=== PATIENT | male | born 1980 | race Caucasian/White ===

== ENCOUNTER 2019-03-02 09:25 | Emergency (ER) | payer BC ==
[2019-03-02] MEDS ORDERED: TETANUS & DIPHTHERIA TOX,ADULT 0.5 ML VIAL ONE (10:10)
[2019-03-02] MEDS ORDERED: LIDOCAINE 2% MPF 5 ML VIAL ONE (11:06)
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
--- NOTE | 2019-03-02 11:42 | ER ---
Nurse's Notes [facility] Name: Favian Broussard Age: 38 yrs Sex: Male : 1980 Arrival Date: 03/02/2019 Time: 09:28 Bed 26 Private MD: Diagnosis: Partial avulsion left 2nd finger tip Presentation: 03/02 09:55 Presenting complaint: Patient states: Partially avulsed wound on the 2nd digit of L ca1 hand. Not bleeding at this time. Transition of care: patient was not received from another setting of care. Complicating Factors: There are no complicating factors for this patient. Onset of symptoms was March 02, 2019. Risk Assessment: Do you want to hurt yourself or someone else? Patient reports no desire to harm self or others. Initial Sepsis Screen: Does the patient meet any 2 criteria? No. Patient's initial sepsis screen is negative. Does the patient have a suspected source of infection? No. Patient's initial sepsis screen is negative. Care prior to arrival: None. 09:55 Method Of Arrival: Ambulatory ca1 09:55 Acuity: MIKEL 4 ca1 Triage Assessment: 09:57 General: Appears in no apparent distress. comfortable, Behavior is calm, cooperative, ca1 appropriate for age. Pain: Complains of pain in palmar aspect of distal phalanx of left index finger Pain currently is 2 out of 10 on a pain scale. Neuro: Level of Consciousness is awake, alert, obeys commands, Oriented to person, place, time, situation, Appropriate for age. Derm: Skin is healthy with good turgor, Skin is pink, warm \T\ dry. Musculoskeletal: Circulation, motion, and sensation intact. Capillary refill < 3 seconds, Range of motion: intact in all extremities. Injury Description: Laceration sustained to palmar aspect of distal phalanx of left index finger is contaminated, jagged, 2.6 to 7.5 cm long, not bleeding, was sustained 30-60 minutes ago. is bleeding no active bleeding noted. Historical: - Allergies: :57 No Known Allergies; ca1 - Home Meds: :57 None [Active]; ca1 - PMHx: 09:57 None; ca1 - Immunization history:: Adult Immunizations up to date, Last tetanus immunization: unknown, Flu vaccine is not up to date. - Social history:: Smoking status: Patient/guardian denies using tobacco. - Ebola Screening: : Patient negative for fever greater than or equal to 101.5 degrees Fahrenheit, and additional compatible Ebola Virus Disease symptoms No symptoms or risks identified at this time. - Family history:: not pertinent. - Hospitalizations: : No recent hospitalization is reported. Screenin:02 Abuse screen: Denies threats or abuse. Denies injuries from another. Nutritional ca1 screening: No deficits noted. Tuberculosis screening: No symptoms or risk factors identified. Fall Risk None identified. Assessment: 10:02 Reassessment: See triage notes. Injury Description: Avulsion sustained to palmar aspect ca1 of distal phalanx of left index finger is partial was sustained 30-60 minutes ago. 10:03 Reassessment: Wound soaked in saline with betadine. ca1 10:32 Reassessment: Wound cleaned and irrigated with saline. ca1 11:20 Reassessment: Patient appears in no apparent distress at this time. Patient is alert, ca1 oriented x 3, equal unlabored respirations, skin warm/dry/pink. Dr. Franco at bedside for lac repair. 11:53 Reassessment: Patient appears in no apparent distress at this time. Patient is alert, ca1 oriented x 3, equal unlabored respirations, skin warm/dry/pink. Vital Signs: 09:57 BP 155 / 74; Pulse 94; Resp 16 S; Temp 98.9(O); Pulse Ox 100% on R/A; Weight 81.65 kg ca1 (R); Height 5 ft. 10 in. (177.80 cm) (R); Pain 2/10; 11:20 BP 139 / 75; Pulse 89; Resp 16 S; Pulse Ox 100% on R/A; ca1 11:53 BP 129 / 81; Pulse 76; Resp 16 S; Pulse Ox 99% on R/A; ca1 09:57 Body Mass Index 25.83 (81.65 kg, 177.80 cm) ca1 ED Course: 09:28 Patient arrived in ED. as 09:51 Mouna Campos, RN is Primary Nurse. ca1 09:54 Jah Franco MD is Attending Physician. rn 09:57 Triage completed. ca1 09:57 Arm band placed on right wrist. ca1 10:02 Patient has correct armband on for positive identification. Bed in low position. Call ca1 light in reach. Side rails up X 1. Pulse ox on. NIBP on. 10:03 Patient did not have IV access during this emergency room visit. ca1 10:31 Wound care: to Avulsed wound located on palmar aspect of distal phalanx of left index ca1 finger was soaked in normal saline solution, irrigated with normal saline, Patient tolerated well. 10:43 XRAY Hand LEFT 3 View In Process Unspecified. EDMS 11:37 Assist provider with laceration repair on palmar aspect of distal phalanx of left index ca1 finger that was between 2.6 to 7.5 cm using sutures. Set up tray. Performed by Jah Franco MD Dressed with 4X4s, Neosporin, Patient tolerated well. 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 Exp: ca1 08/28/2020. Lot #: [id number]. } Route: IM; Site: right deltoid; 11:09 Follow up: Response: No adverse reaction ca1 11:36 Drug: Lidocaine (1 %) 1 vials {Note: by Dr. Franco.} Volume: 5 ml; Route: Infiltration; ca1 Outcome: 11:41 Discharge ordered by . rn 11:54 Discharged to home ambulatory, with family. ca1 11:54 Condition: stable 11:54 Discharge instructions given to patient, Instructed on discharge instructions, follow up and referral plans. medication usage, wound care, Demonstrated understanding of instructions, follow-up care, medications, Prescriptions given X 1. 11:55 Patient left the ED. ca1 Signatures: Dispatcher [employer] EDMS Aimee Choudhary Roman, MD MD rn Acob, Cheryl, RN RN ca1 Corrections: (The following items were deleted from the chart) 10:02 09:55 Presenting complaint: Patient states: Partially avulsed wound on the L 2nd digit. ca1 Not bleeding at this time. ca1 10:33 10:02 Injury Description: See triage notes ca1 ca1 10:33 10:03 Injury Description: Laceration ca1 ca1
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
[2019-03-02 12:01] VITALS: TEMP 98.9
[2019-03-02 12:04] VITALS: BP 129/81; O2SAT 99
== END 2019-03-02 11:55 | disposition home or self-care (01) ==
LOC: ER 09:25
PROC: 0JQK0ZZ Repair Left Hand Subcutaneous Tissue and Fascia, Open Approach (ICD-10-PCS; principal; 2019-03-02)
DX: S61.201A Unspecified open wound of left index finger without damage to nail, initial encounter (principal); W33.12XA Accidental malfunction of hunting rifle, initial encounter; Y93.89 Activity, other specified; Y92.9 Unspecified place or not applicable; Z23 Encounter for immunization
CPT/HCPCS: 90471; 90714; 99284